=== PATIENT | female | born 1955 | race Caucasian/White ===

== ENCOUNTER → 2017-12-08 | Outpatient (CLI) | payer BC ==
[2017-12-08 13:07] LABS: Basophils % (A) 0 %; Eosinophils # (A) 0.2 k/uL (0-0.7); Eosinophils % (A) 2 %; HCT 41.7 % (34.0-46.0); HGB 13.9 gm/dL (11.4-16.0); Lymphocytes # (A) 0.7 k/uL (1.0-4.8); Lymphocytes % (A) 11 %; MCH 30.3 pg (25.0-35.0); MCHC 33.3 g/dL (31.0-37.0); MCV 91.1 fL (80.0-100.0); Mean Platelet Volume 7.4; Monocytes # (A) 0.3 k/uL (0-1.0); Monocytes % (A) 5 %; Neutrophils # (A) 5.5 k/uL (1.3-7.7); Neutrophils % (A) 81 %; Platelet Count 238 k/uL (150-450); RBC 4.58 m/uL (3.80-5.40); RDW 12.4 % (11.5-15.5); WBC 6.8 k/uL (3.8-10.6)
== END | disposition home or self-care (01) ==
LOC: LABPAT 11:45
PROVIDERS: ATTEND Obstetrics & Gynecology
DX: Z01.818 Encounter for other preprocedural examination (principal); Z01.812 Encounter for preprocedural laboratory examination
CPT/HCPCS: 36415; 85025; 93005

== ENCOUNTER → 2017-12-19 | Day surgery (SDC) | payer BC ==
[2017-12-16 15:03] VITALS: BMI 29.0
--- NOTE | 2017-12-18 07:49 | P.HPOB ---
History of Present Illness H&P Date: 12/18/17 Chief Complaint: Postmenopausal bleeding. This patient is a pleasant 62 yr female who presents for hysteroscopy and D &C for evaluation postmenopausal bleeding. Her history is such that she began having several episodes of vaginal bleeding in . Ultrasound showed the endometrium to be only ~6mm, but with a small amount of fluid. She now presents for further evaluation. Review of Systems Genitourinary: Reports as per HPI, Reports abnormal vaginal bleeding Menstruation: Reports post hysterectomy, Reports postmenopausal Past Medical History Past Medical History: Cancer, Hyperlipidemia, Hypertension, Thyroid Disorder History of Any Multi-Drug Resistant Organisms: None Reported Past Surgical History: Breast Surgery, Cholecystectomy, Tonsillectomy Additional Past Surgical History / Comment(s): Colonoscopy, L Lumpectomy. D&C Past Anesthesia/Blood Transfusion Reactions: No Reported Reaction Additional Past Anesthesia/Blood Transfusion Reaction / Comment(s): Fears of not waking up from anesthesia. Past Psychological History: No Psychological Hx Reported Smoking Status: Former smoker Past Alcohol Use History: None Reported Past Drug Use History: None Reported - Past Family History Mother Family Medical History: No Reported History Brother(s) Family Medical History: Cancer Additional Family Medical History / Comment(s): Skin. Medications and Allergies Home Medications Medication Instructions Recorded Confirmed Type ALPRAZolam [Xanax] 0.25 mg PO DAILY PRN 12/16/17 12/16/17 History Atorvastatin Calcium [Lipitor] 20 mg PO DAILY 12/16/17 12/16/17 History Levothyroxine Sodium [Synthroid] 112 mcg PO DAILY 12/16/17 12/16/17 History Losartan-Hctz 50-12.5 mg [Hyzaar 1 each PO DAILY 12/16/17 12/16/17 History 50-12.5] Allergies Allergy/AdvReac Type Severity Reaction Status Date / Time codeine Allergy Rash/Hives Verified 12/16/17 14:21 Exam - OBG Physical Exam Abdomen: bowel sounds normal, no diffuse tenderness, no bruit present, no guarding noted, no hepatomegaly, no splenomegaly, no mass Vulva: both: normal Vagina: no discharge, atrophic mucosa Cervix: no lesion, no discharge Uterus: Small/atrophic Results Transvaginal ultrasound on 12/01/2017 showed a small uterus with endometrium 5-6 mm. There was a small amount of fluid in the endometrium. Assessment and Plan Assessment: This is a pleasant 62 yr female with several episodes of postmenopausal bleeding. Ultrasound shows ? fluid in the endometrium. Plan is hysteroscopy and D&C for further evaluation. Patient and I have discussed this surgery and risks: infection, bleeding, possible uterine perforation. All of the patients questions were answered and a written consent obtained. (1) Postmenopausal bleeding Status: Acute Code(s): N95.0 - POSTMENOPAUSAL BLEEDING SNOMED Code(s): 78303004
[~2017-12-19] MED LIST: DEXAMETHASONE SOD PHOSPHATE 10 MG/ML 1 ML VIAL IV ONE; KETOROLAC 30 MG/ML 1 ML VIAL ONE; LACTATED RINGERS 1,000 ML IV SCH; LIDOCAINE 1% 20 ML VIAL (10MG/ML) FOR IV START INTRADERMA ONE; LIDOCAINE 1% INJ 10MG/ML (20 ML MDV) ONE; MIDAZOLAM 2 MG/2 ML VIAL IV PRN; MIDAZOLAM 2 MG/2 ML VIAL ONE; MORPHINE SULFATE 4 MG/ML SYRINGE IV PRN; ONDANSETRON 4 MG/2 ML VIAL IVP ONE; PROPOFOL 10 MG/ML 20 ML VIAL IV ONE; Pre Op ABX Message 1 EACH MISC MISCELLANE ONE; SCOPOLAMINE 1.5MG/72HR PATCH TRANSDERM ONE; SUCCINYLCHOLINE CHLORIDE 100 MG/5 ML SYR IV ONE; fentaNYL (PF) 50 MCG/ML 2 ML AMP ONE
[2017-12-19 06:20] VITALS: RESP 16
--- NOTE | 2017-12-19 07:22 | P.OP ---
Date of Procedure: 12/19/17 Preoperative Diagnosis: Post menopausal bleeding. Postoperative Diagnosis: Same Procedure(s) Performed: #1: Hysteroscopy. #2: Dilation and curettage. Anesthesia: MAC Surgeon: Kostas Seay Estimated Blood Loss (ml): 5 Urine output (ml): 20 Pathology: other (Uterine curettings) Condition: stable Disposition: PACU Indications for Procedure: Please see dictated H&P for intimate details of this patient's admission. Brief summary is a pleasant 62-year-old 2 para 2 female who has had several episodes of postmenopausal bleeding and now presents for hysteroscopy D& C for further evaluation. Patient does understand the surgery and risks including risks of infection, bleeding, possible uterine perforation. All the patient's questions are answered and written consent is obtained. Operative Findings: This patient had a very atrophic appearing uterine lining as well as endocervix. There is no evidence of any polyps, fibroids, and/or other growths. Description of Procedure: This patient is taken to the operating room where she is laid in the supine position. She subsequently undergoes general mask anesthesia without incident. With an adequate level of anesthesia she's placed in dorsal lithotomy position. Examination under anesthesia shows a severely retroverted uterus that is small. I first drain the bladder for 20 mL of clear urine. Weighted speculum was placed in the posterior vagina and the anterior lip of the cervix is grabbed with an Allis clamp. Uterus is gently sounded to 7.5 cm retroverted. Gentle dilation is then done until the hysteroscope can easily be introduced into the uterine cavity. Hysteroscopy is performed and the uterine cavity is completely visualized. It appears very atrophic without evidence of polyps, fibroids, and/or other growths. With this done the hysteroscope was then removed. Dilate the cervix more to allow a small curette easily and the uterine cavity a vigorous gentle 4 quadrant curettage is done for scant tissue consistent with the atrophy. With this done the procedure is ended. The Allis clamp and weighted speculum removed. All counts are correct 3. There are no complications. Patient is awake from anesthesia and taken recovery room in satisfactory condition.
[2017-12-19 07:23] VITALS: TEMP 97.4
[2017-12-19 08:25] VITALS: BP 159/79; PULSE 72
== END | disposition home or self-care (01) ==
LOC: OR 06:01
PROVIDERS: ATTEND Obstetrics & Gynecology
DX: N95.0 Postmenopausal bleeding (principal); N88.8 Other specified noninflammatory disorders of cervix uteri; I10 Essential (primary) hypertension; E07.9 Disorder of thyroid, unspecified; E78.5 Hyperlipidemia, unspecified; Z88.5 Allergy status to narcotic agent; Z79.899 Other long term (current) drug therapy; Z87.891 Personal history of nicotine dependence; Z90.49 Acquired absence of other specified parts of digestive tract
CPT/HCPCS: 88305; 88342

== ENCOUNTER → 2021-08-03 | Outpatient (CLI) | payer BC ==
--- NOTE | 2021-08-03 08:03 | MR ---
EXAMINATION TYPE: MR MRCP DATE OF EXAM: 08/03/2021 COMPARISON: Outside CT abdomen from [facility] in December. HISTORY: Breast cancer, abdominal pain Standard multiplanar, multisequence MRI departmental protocol Multiplanar, multisequence images of the abdomen were acquired without contrast. Diffusion weighte d imaging was performed . Thin and thick slice MRCP imaging performed on MRI scanner.. FINDINGS: Liver/gallbladder/pancreas/biliary system: Pancreas is normal in size with no concerning solid or cys tic mass. Liver is normal in size. Gallbladder is surgically absent. MRCP images show no pancreatic d uctal dilatation. Common bile duct measures under 10 mm which is within normal limits after cholecyst ectomy. No biliary dilatation is noted. Other: There is partial visualization of lower left breast implant redemonstrated. The spleen and bot h adrenal glands appear within normal limits. There is redemonstration of 1.6 cm thin-walled cyst pos teriorly upper and midpole of the left kidney. No intra-abdominal ascites. No bowel obstruction. Visu alized osseous structures are intact. IMPRESSION: Postcholecystectomy changes. No suspicious biliary or pancreatic ductal dilatation.
== END | disposition home or self-care (01) ==
LOC: RADMRIMAIN 06:38
PROVIDERS: ATTEND Internal Medicine Hematology & Oncology
DX: R10.9 Unspecified abdominal pain (principal); C50.412 Malignant neoplasm of upper-outer quadrant of left female breast
CPT/HCPCS: 74181